=== PATIENT | male | born 1970 | race Two or more races ===

== ENCOUNTER 2024-06-26 13:30 | Emergency (ER) | payer OTHER ==
[~2024-06-26] VITALS: Ht 162.6 cm; Wt 87.5 kg
[~2024-06-26 13:30] MED LIST: ADCIRCA20 MG; NO TOMA MED.
[2024-06-26] MEDS ORDERED: BENZONATATE 100 MG CAPSULE PO STA (15:51)
[2024-06-26 16:52] LABS: HEMATOCRIT 46.4 % (39.0-48.0); MEAN CELL VOLUME 88.6 fL (80.0-100.00); MEAN CORPUSCULAR HEMOGLOBIN 30.6 pg (27.00-32.0); MEAN CORPUSCULAR HGB CONC 34.5 g/dl (32.0-36.0); PLATELET COUNT 231 K/uL (150-450); RED BLOOD COUNT 5.24 M/uL (4.00-6.00); RED CELL DISTRIBUTION WIDTH 13.8 % (11.5-14.5)
[2024-06-26 17:36] LABS: INFLUENZA A AG NEGATIVE (NEGATIVE)
[2024-06-26 17:39] LABS: COVID-19 AG NEGATIVE (NEGATIVE)
[2024-06-26] MEDS ORDERED: ACETAMINOPHEN500 M1 PO (17:55)
[2024-06-26] MEDS ORDERED: GILTUSS COUGH-118 M1 PO (17:55)
== END 2024-06-26 18:36 | disposition home or self-care (01) ==
LOC: ER 13:31
PROVIDERS: General Practice
DX: B34.9 Viral infection, unspecified (principal); R53.81 Other malaise; Z20.822 Contact with and (suspected) exposure to COVID-19

== ENCOUNTER 2024-06-30 05:43 | Day surgery (SDC) | payer OTHER ==
[2024-06-22 13:41] VITALS: BP 138/83
[~2024-06-30] VITALS: Ht 170.2 cm; Wt 87.5 kg
[~2024-06-30 05:43] MED LIST changes: +ACETAMINOPHEN500 M1 PO; +GILTUSS COUGH-118 M1 PO
[2024-06-30] MEDS ORDERED: ENOXAPARIN SODIUM 40 MG/0.4 ML SYRINGE SUBCUTANEO ONE ×2 (07:10→08:00)
[2024-06-30] MEDS ORDERED: CEFTRIAXONE SODIUM 2,000 MG VIAL ONE ×2 (07:11→07:12)
[2024-06-30] MEDS ORDERED: METRONIDAZOLE/SODIUM CHLORIDE 500 MG/100 ML PIGGYBACK IV ONE ×2 (07:12→08:00)
[2024-06-30] MEDS ORDERED: CEFTRIAXONE SODIUM 2,000 MG VIAL IV ONE (08:00)
[2024-06-30] MEDS ORDERED: SUGAMMADEX SODIUM 200 MG/2 ML VIAL IV ONE (09:35)
[2024-06-30] MEDS ORDERED: PERCOCET 5-3251 EACH PO (10:09)
[2024-06-30] MEDS ORDERED: NEURONTIN300 MG PO (10:09)
[2024-06-30] MEDS ORDERED: CELEBREX200MG PO (10:10)
[2024-06-30] MEDS ORDERED: POLY119PG PO (10:10)
[2024-06-30] MEDS ORDERED: AMOX-CLAV 875-1 EACH PO (10:15)
[2024-06-30] MEDS ORDERED: MORPHINE SULFATE 4 MG/ML VIAL IV ONE (10:50)
== END 2024-06-30 13:35 | disposition home or self-care (01) ==
LOC: CIR.AMB 05:43
PROVIDERS: ATTEND Surgery
DX: K43.6 Other and unspecified ventral hernia with obstruction, without gangrene (principal)
CPT/HCPCS: 49594; C1781; S2900

== ENCOUNTER 2024-11-27 14:06 | Emergency (ER) | payer OTHER ==
[~2024-11-27] VITALS: Ht 170.2 cm; Wt 83.9 kg
[~2024-11-27 14:06] MED LIST changes: +AMOX-CLAV 875-1 EACH PO; +CELEBREX200MG PO; +NEURONTIN300 MG PO; +PERCOCET 5-3251 EACH PO; +POLY119PG PO
[2024-11-27] MEDS ORDERED: ADCIRCA20 MG (14:26)
[2024-11-27] MEDS ORDERED: ARMOUR THYROID15 MG (14:26)
[2024-11-27] MEDS ORDERED: HYDROGEN PEROXIDE 473 ML BOTTLE TOP ONE (15:25)
== END 2024-11-27 17:07 | disposition home or self-care (01) ==
LOC: ER 14:06
DX: K64.1 Second degree hemorrhoids (principal)